=== PATIENT | male | born 1950 | race Caucasian/White ===

== ENCOUNTER 2019-01-16 15:26 | Emergency (ER) | payer MEDICARE ==
[2019-01-16] MEDS ORDERED: Diphtheria,Pertussis(Acell),Tetanus Vaccine 0.5 ML Syringe IM ONE (15:53)
--- NOTE | 2019-01-16 15:56 | EDM.PDOC ---
ED HPI GENERAL MEDICAL PROBLEM - General Chief Complaint: General Stated Complaint: NEEDS TETNUS SHOT Time Seen by Provider: 01/16/19 15:53 Source of Information: Reports: Patient History Limitations: Reports: No Limitations - History of Present Illness INITIAL COMMENTS - FREE TEXT/NARRATIVE: 68-year-old male reports to the ED after suffering a puncture wound to his right third finger. Using a nail gun in the [place] pierced the finger pretty well over the DIP joint on the radial aspect. He states blood for sure. He states it bled for a short period of time and then it quit. He is not a diabetic. He states he needs a tetanus shot since he's not had one for many years. Onset: Today Onset Date: 01/16/19 Onset Time: 14:15 Duration: Minutes: Location: Reports: Upper Extremity, Right (Right distal middle finger radial aspect of the PIP joint. Puncture wound by a nail gun) Quality: Reports: Ache Severity: Moderate Improves with: Reports: None Worsens with: Reports: None Context: Reports: Trauma (Puncture wound caused by a broad malar). 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: Other (see below) (None.) - Related Data Allergies Allergy/AdvReac Type Severity Reaction Status Date / Time No Known Allergies Allergy Verified 01/16/19 15:52 Home Meds: Home Meds Doxycycline [Vibramycin] 100 mg PO BID #20 cap 01/16/19 [Rx] Past Medical History Cardiovascular History: Reports: High Cholesterol, Hypertension - Past Surgical History Cardiovascular Surgical History: Reports: Coronary Artery Stent Social & Family History - Tobacco Use Smoking Status *Q: Never Smoker Second Hand Smoke Exposure: No - Caffeine Use Caffeine Use: Reports: Coffee - Recreational Drug Use Recreational Drug Use: No - Living Situation & Occupation Living situation: Reports: 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) ED ROS GENERAL - Review of Systems Review Of Systems: See Below Constitutional: Reports: No Symptoms HEENT: Reports: No Symptoms Respiratory: Reports: No Symptoms Cardiovascular: Reports: Blood Pressure Problem Endocrine: Reports: No Symptoms GI/Abdominal: Reports: No Symptoms : Reports: No Symptoms Musculoskeletal: Reports: No Symptoms Skin: Reports: No Symptoms Neurological: Reports: No Symptoms Psychiatric: Reports: No Symptoms Hematologic/Lymphatic: Reports: No Symptoms Immunologic: Reports: No Symptoms ED EXAM, GENERAL - Physical Exam Exam: See Below Exam Limited By: No Limitations General Appearance: Alert, WD/WN, No Apparent Distress Extremities: Other (She has a solitary puncture wound to the radial aspect of his distal right third finger. It appears that it may have punctured the joint space between the mid distal and middle phalanx. His full range of motion of the finger however in this area. Is a very dirty and therefore the risk of wound infection is quite high.) Neurological: Alert, Oriented, CN II-XII Intact, Normal Cognition Psychiatric: Normal Affect, Normal Mood Skin Exam: Warm, Dry, Intact, Normal Color, No Rash Course - Vital Signs Last Recorded V/S: Last Vital Signs Temp 36.1 C 01/16/19 15:50 Pulse 69 01/16/19 15:50 Resp 16 01/16/19 15:50 BP 146/92 H 01/16/19 15:50 Pulse Ox 99 01/16/19 15:50 - Orders/Labs/Meds Orders: Active Orders 24 hr Category Date Time Status Vaccines to be Administered [RC] PER UNIT ROUTINE Care 01/16/19 15:54 Active Meds: Medications Discontinued Medications Generic Name Dose Route Start Last Admin Trade Name Freq PRN Reason Stop Dose Admin Diphtheria/Tetanus/Acell Pertussis 0.5 ml 01/16/19 15:53 Adacel IM 01/16/19 15:54 .ONCE ONE - Radiology Interpretation Free Text/Narrative:: 68-year-old male presents to the ED with a solitary puncture wound to the radial aspect of his distal right third finger. He accidentally shot himself with a Sandeep Jada. This punctured the DIP joint I believe. He has full range of motion clinically has no fracture. The risk of infection is quite eyes the fingers are very dirty and money. Tetanus, diphtheria and pertussis vaccine will be updated. Placed on doxycycline 100 mg twice daily for the next 10 days to help prevent any secondary wound infection. He will follow-up if any signs of infection do occur. Departure - Departure Time of Disposition: 15:54 Disposition: Home, Self-Care 01 Condition: Fair Clinical Impression: Puncture wound of finger of right hand Qualifiers: Encounter type: initial encounter Qualified Code(s): S61.239A - Puncture wound without foreign body of unspecified finger without damage to nail, initial encounter - Discharge Information *PRESCRIPTION DRUG MONITORING PROGRAM REVIEWED*: Not Applicable *COPY OF PRESCRIPTION DRUG MONITORING REPORT IN PATIENT KANWAL: Not Applicable Prescriptions: Doxycycline [Vibramycin] 100 mg PO BID #20 cap Instructions: Puncture Wound, [id number] Referrals: PCP,None [Primary Care Provider] - Forms: ED Department Discharge Additional Instructions: Evaluation the emergency room today in regards to puncture wound caused by a nail gun into the distal aspect of your right third finger. The puncture wound is right over the joint space between the distal and middle phalanx of the finger. This places you at risk of an infection potentially even in the joint. Decision made to update her tetanus diphtheria pertussis vaccine which is good for the next 10 years. Suggest daily cleanse the area with soap and water and place topical antibiotic such as bacitracin or Polysporin. Cover with a bandage for 3 days. Take oral antibiotic ducts likely 100 mg twice daily for the next 10 days to prevent secondary wound infection. Of course return to the ED over the weekend if any signs of infection occur such as increased redness, swelling or obvious pus. - My Orders Last 24 Hours: My Active Orders 01/16/19 15:54 Vaccines to be Administered [RC] PER UNIT ROUTINE - Assessment/Plan Last 24 Hours: My Active Orders 01/16/19 15:54 Vaccines to be Administered [RC] PER UNIT ROUTINE
== END 2019-01-16 16:15 | disposition home or self-care (01) ==
LOC: JD.ED 15:26
DX: S61.232A Puncture wound without foreign body of right middle finger without damage to nail, initial encounter (principal); I10 Essential (primary) hypertension; Z23 Encounter for immunization; W29.4XXA Contact with nail gun, initial encounter
CPT/HCPCS: 90471; 90700; 99282; 99283